=== PATIENT | female | born 1960 | race Caucasian/White ===

== ENCOUNTER 2016-09-22 14:36 | Emergency (ER) | payer MEDICAID, OTHER ==
[~2016-09-22] VITALS: Ht 157.5 cm; Wt 77.0 kg
[2016-09-22 14:39] VITALS: Ht 157.5 cm; Wt 77.0 kg
[2016-09-22] MEDS ORDERED: ACETAMINOPHEN 325 MG TAB PO STA (15:26)
[2016-09-22 16:06] LABS: BASOPHILS % 0.3 % (0.0-2.0); EOSINOPHILS # 0.1 10^3/ul (0.0-0.5); EOSINOPHILS % 0.5 % (0.0-7.0); HEMATOCRIT 32.6 % (37.0-47.0); HEMOGLOBIN 10.9 g/dl (12.0-16.0); LYMPHOCYTES # 2.8 10^3/ul (0.8-2.9); LYMPHOCYTES % 22.7 % (15.0-51.0); MEAN CORPUSCULAR HEMOGLOBIN 31.5 pg (29.0-33.0); MEAN CORPUSCULAR HGB CONC 33.4 g/dl (32.0-37.0); MEAN CORPUSCULAR VOLUME 94.2 fl (82.0-101.0); MEAN PLATELET VOLUME 9.9 fl (7.4-10.4); MONOCYTE # 0.7 10^3/ul (0.3-0.9); MONOCYTES % 5.6 % (0.0-11.0); NEUTROPHIL # 8.6 10^3/ul (1.6-7.5); NEUTROPHILS % 70.4 % (39.0-77.0); PLATELET COUNT 407 10^3/UL (140-415); RED BLOOD COUNT 3.46 10^6/ul (4.20-5.40); RED CELL DISTRIBUTION WIDTH 12.8 % (11.5-14.5); WHITE BLOOD COUNT 12.2 10^3/ul (4.8-10.8)
[2016-09-22 16:08] LABS: ADD UMIC YES; UR ASCORBIC ACID NEGATIVE (NEGATIVE); UR BILIRUBIN (Dip) NEGATIVE (NEGATIVE); UR BLOOD (Dip) NEGATIVE (NEGATIVE); UR CLARITY CLEAR (CLEAR); UR COLOR YELLOW (YELLOW); UR GLUCOSE (Dip) NEGATIVE (NEGATIVE); UR KETONES (Dip) NEGATIVE (NEGATIVE); UR LEUKOCYTE ESTERASE (Dip) NEGATIVE Leu/ul (NEGATIVE); UR NITRITE (Dip) NEGATIVE (NEGATIVE); UR RBC 0 /HPF (0-5); UR SPECIFIC GRAVITY (Dip) 1.014 (1.003-1.030); UR TOTAL PROTEIN (Dip) 1+ mg/dl (NEGATIVE); UR UROBILINOGEN (Dip) NEGATIVE (NEGATIVE)
[2016-09-22 16:33] LABS: ALBUMIN 4.2 g/dl (3.3-4.9); ALBUMIN/GLOBULIN RATIO 0.89; BILIRUBIN,INDIRECT 0.3 mg/dl (0-1.1); BILIRUBIN,TOTAL 0.3 mg/dl (0.2-1.3); CALCIUM 9.3 mg/dl (8.4-10.2); CREATININE 0.95 mg/dl (0.44-1.00); POTASSIUM 4.8 mmol/L (3.5-5.1); TOTAL PROTEIN 8.9 g/dl (6.1-8.1)
--- NOTE | 2016-09-22 17:56 | RADRPT ---
PROCEDURE: Chest x-ray CLINICAL INDICATION: Shortness of breath TECHNIQUE: Chest single view COMPARISON: None FINDINGS: The heart is normal in size. The pulmonary vessels are normal in caliber. There is right lower lob e pneumonia with small right parapneumonic effusion. Left lung is clear. Left costophrenic angle s harp. IMPRESSION: 1. Right lower lobe pneumonia with small right pleural effusion RPTAT: HH .Joey Alvarez MD, MD Date Time Electronically viewed and signed by .Joey Alvarez MD, on 09/22/2016 17:56 .W/
[2016-09-22] MEDS ORDERED: CEFTRIAXONE 1 GM/50 ML (PMX) 50 ML IVPB ONE (18:00)
[2016-09-22] MEDS ORDERED: AZITHROMYCIN 250 MG TAB PO ONE (18:00)
[2016-09-22] MEDS ORDERED: AMOX1TAB10 PO (18:26)
[2016-09-22] MEDS ORDERED: ACET500C5 PO (18:26)
[2016-09-22] MEDS ORDERED: AZIT250T94 PO (18:26)
[2016-09-22] MEDS ORDERED: IBUP-1542 PO (18:26)
--- NOTE | 2016-09-22 18:29 | ERD ---
ER Documentation Chief Complaint Date/Time DATE: 09/22/16 TIME: 18:27 Chief Complaint fever, body aches,dysuria and fatigue x 14 days HPI This 56-year-old female presents with complaints of fatigue for the last 4 days. She has had fever as well she states for 2 weeks. She has body aches. She has a mild cough. She complains of dysuria as well. Denies abdominal pain , vomiting, neck stiffness, headache or rashes. ROS All systems reviewed and are negative except as per history of present illness. Medications Home Meds Active Scripts Azithromycin* (Zithromax*) 250 Mg Tablet, 250 MG PO .ZPACK DIRECTED, #6 TAB TAKE 500 MG (2 TABS) THE FIRST DAY THEN 250 MG (1 TAB) DAYS 2-5 Prov:JAYNE PATEL MD 09/22/16 Acetaminophen* (Tylophen*) 500 Mg Capsule, 1 CAP PO Q6H Y for PAIN AND OR ELEVATED TEMP, #15 CAP Prov:JAYNE PATEL MD 09/22/16 Ibuprofen* (Motrin*) 600 Mg Tab, 600 MG PO Q6, #15 TAB Prov:JAYNE PATEL MD 09/22/16 Amoxicillin/Potassium Clav (Amox-Clav 875-125 mg Tablet) 875-125 mg Tab, 1 TAB PO BID for 7 Days, #14 TAB Prov:JAYNE PATEL MD 09/22/16 Allergies Allergies: Coded Allergies: No Known Allergy (Unverified , 09/22/16) PMhx/Soc Hx Alcohol Use: No Hx Substance Use: No Hx Tobacco Use: No Smoking Status: Never smoker Physical Exam Vitals Vital Signs Date Time Temp Pulse Resp B/P Pulse Ox O2 Delivery O2 Flow Rate FiO2 09/22/16 14:39 102.6 76 18 128/56 94 Physical Exam Const: [] Letter, [id number] per Head: Atraumatic Eyes: Normal Conjunctiva ENT: Normal External Ears, Nose and Mouth. TMs and oropharynx normal. Neck: Full range of motion..~ No meningismus. Resp: Clear to auscultation bilaterally. Rales in the right base. No retractions or wheezing appreciated. Cardio: Regular rate and rhythm, no murmurs Abd: Soft, non tender, non distended. Normal bowel sounds Skin: No petechiae or rashes Back: No midline or flank tenderness Ext: No cyanosis, or edema Neur: Awake and alert Psych: Normal Mood and Affect Result Diagram: 09/22/16 1540 09/22/16 1540 Results 24 hrs Laboratory Tests Test 09/22/16 15:40 White Blood Count 12.210^3/ul Red Blood Count 3.4610^6/ul Hemoglobin 10.9g/dl Hematocrit 32.6% Mean Corpuscular Volume 94.2fl Mean Corpuscular Hemoglobin 31.5pg Mean Corpuscular Hemoglobin Concent 33.4g/dl Red Cell Distribution Width 12.8% Platelet Count 00996^3/UL Mean Platelet Volume 9.9fl Neutrophils % 70.4% Lymphocytes % 22.7% Monocytes % 5.6% Eosinophils % 0.5% Basophils % 0.3% Nucleated Red Blood Cells % 0.0/100WBC Neutrophils # 8.610^3/ul Lymphocytes # 2.810^3/ul Monocytes # 0.710^3/ul Eosinophils # 0.110^3/ul Basophils # 0.010^3/ul Nucleated Red Blood Cells # 0.010^3/ul Urine Color YELLOW Urine Clarity CLEAR Urine pH 6.0 Urine Specific [place] 1.014 Urine Ketones NEGATIVEmg/dL Urine Nitrite NEGATIVEmg/dL Urine Bilirubin NEGATIVEmg/dL Urine Urobilinogen NEGATIVEmg/dL Urine Leukocyte Esterase NEGATIVELeu/ul Urine Microscopic RBC 0/HPF Urine Microscopic WBC 1/HPF Urine Hemoglobin NEGATIVEmg/dL Urine Glucose NEGATIVEmg/dL Urine Total Protein 1+mg/dl Sodium Level 136mmol/L Potassium Level 4.8mmol/L Chloride Level 94mmol/L Carbon Dioxide Level 25mmol/L Anion Gap 22 Blood Urea Nitrogen 13mg/dl Creatinine 0.95mg/dl Glucose Level 105mg/dl Calcium Level 9.3mg/dl Total Bilirubin 0.3mg/dl Direct Bilirubin 0.00mg/dl Indirect Bilirubin 0.3mg/dl Aspartate Amino Transf (AST/SGOT) 182IU/L Alanine Aminotransferase (ALT/SGPT) 171IU/L Alkaline Phosphatase 216IU/L Total Protein 8.9g/dl Albumin 4.2g/dl Globulin 4.70g/dl Albumin/Globulin Ratio 0.89 Current Medications Medications (Trade) Dose Ordered Sig/Tegan Route PRN Reason Start Time Stop Time Status Last Admin Dose Admin Acetaminophen 650 mg 650 mg ONCE STAT PO 09/22/16 15:26 09/22/16 15:28 DC 09/22/16 15:55 Ceftriaxone Sodium (Rocephin) 50 ml @ 100 mls/hr ONCE ONCE IVPB 09/22/16 18:00 09/22/16 18:29 09/22/16 17:53 Azithromycin (Zithromax) 500 mg ONCE ONCE PO 09/22/16 18:00 09/22/16 18:01 DC 09/22/16 17:53 Procedures/MDM Chest X-ray 1V Interpreted by me: Soft Tissue: No acute abnormalities Bones: No acute abnormalities Mediastinum/Cardiac Silhouette/Lungs: Right lower lobe infiltrate and slight effusion. Impression-right lower lobe infiltrate and slight effusion CBC shows white blood cell count of 12 mild microcytic anemia. CMP shows transaminitis without evidence of biliary obstruction and normal lipase. Blood cultures pending. Patient was given Rocephin 1 g IV Zithromax 500 mg by mouth. Patient was given Tylenol for fever as well. Patient presents with febrile illness and cough and signs of pneumonia on x-ray. Urine is negative for signs of infection. She will be treated with Augmentin and Zithromax and fever control and primary care follow-up at home. There is no evidence of hypoxemia, respiratory distress or tachycardia to suggest sepsis. She should return for vomiting, shortness breath, new worsening symptoms with primary care doctor this week. The patient was stable with no new complaints during the ER course. Clinically, there is no current evidence to suggest meningitis, sepsis, acute abdomen, pneumonia, acute coronary syndrome, pulmonary embolism, or any other emergent condition appearing to require further evaluation or hospitalization. The patient should certainly return for any new or worsening symptoms per the aftercare instructions. They should otherwise follow-up with her primary care doctor for reevaluation this week. Disclaimer: Inadvertent spelling and grammatical errors are likely due to EHR/ dictation software use and do not reflect on the overall quality of patient care. Also, please note that the electronic time recorded on this note does not necessarily reflect the actual time of the patient encounter. Departure Diagnosis: Primary Impression: Pneumonia Pneumonia type: due to unspecified organism Laterality: right Lung location : lower lobe of lung Qualified Code: J18.1 - Pneumonia of right lower lobe due to infectious organism Additional Impression: Fever Fever type: unspecified Qualified Code: R50.9 - Fever, unspecified fever cause Patient Instructions: Pneumonia, Fever Control (Adult) Additional Instructions: x ray tiene pneumonia. Cheque otro vez con zarate doctor primario en el proximo pepe or regresa para mas o nueva simptomas. JAYNE PATEL MD Sep 22, 2016 18:29
[2016-09-22 18:35] VITALS: BP 118/58; PULSE 64; RESP 17; TEMP 98.2
== END 2016-09-22 18:35 | disposition home or self-care (01) ==
LOC: FTE 14:36
DX: J18.1 Lobar pneumonia, unspecified organism (principal)
CPT/HCPCS: 36415; 71010; 80053; 81001; 85025; 87040; 87086; 96374; J0696; Z7502; Z7610